=== PATIENT | female | born 1960 | race Caucasian/White ===

== ENCOUNTER 2016-05-29 14:19 | Emergency (ER) | payer SELFPAY ==
--- NOTE | 2016-05-29 18:16 | Emergency Department Report ---
Chief Complaint: Chest Pain Stated Complaint: HIGH BP/HEADACHE X 3 DAYS Time Seen by Provider: 05/29/16 18:11 - HPI History of Present Illness: Patient reports headache, ringing in the ears and out of antihypertensive medication for three days. Also, c/o chest discomfort that started this am - ROS Review of Systems: all other systems are unremarkable except for documentation in HPI - Exam Vital Signs: Vital Signs 05/29/16 16:03 Temperature 98.4 F Pulse Rate 78 Respiratory 16 Rate Blood Pressure 155/97 O2 Sat by Pulse 100 Oximetry Physical Exam: Gen: well developed and nourished, NAD Cardio: heart sounds present S1-S2, no ectopy, murmur or gallops Resp: even and unlabored, lungs CTA [place], no wheezes, rales or rhonchi MSE screening note: Focused history and physical exam performed. Due to findings the following was ordered: laboratory and radiology studies ordered ED Disposition for MSE Condition: Stable
[2016-05-29 19:00] LABS: Basophils % (Auto) 0.4 % (0.0-1.8); Eosinophils % (Auto) 1.9 % (0.0-4.3); Hematocrit 38.3 % (30.3-42.9); Mean Corpuscular HGB Conc 34 % (30-34); Mean Corpuscular Hemoglobin 29 pg (28-32); Mean Corpuscular Volume 86 fl (79-97); Platelet Count 274 K/mm3 (140-440); Red Blood Count 4.48 M/mm3 (3.65-5.03); Red Cell Distribution Width 12.6 % (13.2-15.2); White Blood Count 7.8 K/mm3 (4.5-11.0)
[2016-05-29 19:31] LABS: Creatine Kinase MB 2.6 ng/mL (0.0-4.0)
[2016-05-29 19:32] LABS: Alanine Aminotransferase 29 units/L (7-56); Albumin 4.2 g/dL (3.9-5); Albumin/Globulin Ratio 1.3 %; Alkaline Phosphatase 66 units/L (35-129); Bilirubin,Total 0.3 mg/dL (0.1-1.2); Blood Urea Nitrogen 17 mg/dL (7-17); Calcium 9.1 mg/dL (8.4-10.2); Carbon Dioxide 27 mmol/L (22-30); Chloride 99.1 mmol/L (98-107); Creatine Kinase 84 units/L (30-135); Glucose 91 mg/dL (65-100); Potassium 3.9 mmol/L (3.6-5.0); Sodium 139 mmol/L (137-145); Total Protein 7.5 g/dL (6.3-8.2)
[2016-05-29 19:44] LABS: Anion Gap 17 mmol/L
[2016-05-29 22:59] VITALS: BP 124/82
--- NOTE | 2016-05-30 09:46 | XRay Report ---
CHEST 2 VIEWS INDICATION: Chest pain, shortness of breath. Skin graft surgery on left leg 3 days ago. COMPARISON: None similar at this institution. FINDINGS: PA and lateral chest radiographs demonstrate normal cardiomediastinal silhouette and clear, well-expanded lungs. Mild focal eventration of both hemidiaphragms suspected. No pleural effusions or CHF. Demineralized bones with mild thoracic spine degenerative spurring. Possible old healed right proximal to mid humeral shaft deformity. Probable cholecystectomy clips. CONCLUSION: No acute chest process with few incidental findings, as above. Thank you for the opportunity to participate in this patient's care.
--- NOTE | 2016-05-31 19:33 | ED Elopement Review ---
ED Pt Elopement review - Results review Lab results: Laboratory Tests 05/29/16 05/29/16 18:43 18:43 WBC 7.8 RBC 4.48 Hgb 13.0 Hct 38.3 MCV 86 MCH 29 MCHC 34 RDW 12.6 L Plt Count 274 Lymph % (Auto) 26.1 [place] % (Auto) 8.3 H Eos % (Auto) 1.9 Baso % (Auto) 0.4 Lymph # 2.0 [place] # 0.7 Eos # 0.1 Baso # 0.0 Seg Neutrophils % 63.3 Seg Neutrophils # 4.9 Sodium 139 Potassium 3.9 Chloride 99.1 Carbon Dioxide 27 Anion Gap 17 BUN 17 Creatinine 0.4 L Estimated GFR > 60 BUN/Creatinine Ratio 42.50 Glucose 91 Calcium 9.1 Total Bilirubin 0.3 AST 20 ALT 29 Alkaline Phosphatase 66 Total Creatine Kinase 84 CK-MB (CK-2) 2.6 CK-MB (CK-2) Rel Index 3.0 Troponin T < 0.010 Total Protein 7.5 Albumin 4.2 Albumin/Globulin Ratio 1.3 - Call Back decision Pt Call Back Decision: No action required
== END 2016-05-29 23:00 | disposition left against medical advice (07) ==
LOC: ED 14:19
DX: I10 Essential (primary) hypertension (principal); R51 Headache; R07.9 Chest pain, unspecified; Z53.21 Procedure and treatment not carried out due to patient leaving prior to being seen by health care provider
CPT/HCPCS: 36415; 71020; 80053; 82550; 82553; 84484; 85025; 93005; 93010